=== PATIENT | female | born 1945 | race Native Hawaiian/Other Pacific Islander ===

== ENCOUNTER 2020-12-03 10:12 | Outpatient (CLI) | payer OTHER | END 2020-12-03 19:37 | disposition home or self-care (01) | LOC: INF 10:12 | PROVIDERS: ATTEND Internal Medicine | DX: Z23 Encounter for immunization (principal) ==

== ENCOUNTER 2020-12-31 07:37 | Outpatient (CLI) | payer OTHER | END 2020-12-31 19:19 | disposition home or self-care (01) | LOC: INF 07:37 | PROVIDERS: ATTEND Internal Medicine | DX: Z23 Encounter for immunization (principal) | CPT/HCPCS: 96372 ==